=== PATIENT | male | born 1980 | race Caucasian/White ===

== ENCOUNTER 2017-08-09 16:45 | Emergency (ER) | payer SELFPAY ==
--- NOTE | 2017-08-09 17:16 | EDPHY ---
H & P Time Seen by Provider: 08/09/17 17:04 HPI/ROS: CHIEF COMPLAINT: Ran out of Xarelto HISTORY OF PRESENT ILLNESS: A 36-year-old man presents with running out of his anticoagulation. He was diagnosed in May 28 of this year in [place] with bilateral pulmonary emboli, I reviewed personally the radiology report which he has with him. He ran out of his Xarelto 5 days ago, is in [place] now, does not know how long he is going to stay. Over the last for 5 days he started getting hot flashes and having some intermittent left-sided chest pain. No leg swelling. No syncope. Not short of breath. REVIEW OF SYSTEMS: Eye: no change in vision ENT: no sore throat Cardiac: No palpitations. Pulmonary: no cough or SOB Abdomen: no vomiting, diarrhea, abdominal pain Musculoskeletal: No leg swelling. Skin: no rash Neuro: no headache Constitutional: no fever : no urinary symptoms A comprehensive 10 point review of systems is otherwise negative aside from elements mentioned in the history of present illness. PAST MEDICAL HISTORY: Pulmonary embolism as documented above. He told me he got genetic testing in that was all negative. Family history positive for grandmother with venous thromboembolism. Social history: Just moved here from [place], no local PCP General Appearance: Alert and conversant, cooperative. Eyes: No scleral icterus. ENT, Mouth: Normal mucous membranes. Respiratory: Normal respiratory effort, breath sounds equal, lungs are clear to auscultation. Speaks in full sentences. Cardiovascular: Regular rate and rhythm. No murmur. Gastrointestinal: Abdomen is soft and non tender. Neurological: Alert, face symmetric, normal motor and sensory in extremities. Skin: Warm and dry, no rashes. Musculoskeletal: No peripheral edema. No calf tenderness. Psychiatric: Not agitated. Emergency Department course/MDM: EKG is not ischemic. Creatinine is normal. Patient does not have clinical evidence of acute new pulmonary embolism and is appropriate for outpatient management on anticoagulation. He has a coupon for 1 month of Eliquis, says he just needs a prescription for me. He was seen by case management to assist in follow-up during the next 30 days here at [facility] in [place]. He is warned that he needs to follow up with primary care within the week to arrange for long-term anticoagulation. He has normal vital signs and I think it is unlikely that he requires inpatient admission today for emergent monitoring or IV anticoagulation or repeat imaging. Smoking Status: Never smoked Constitutional: Initial Vital Signs Temperature (C) 36.5 C 08/09/17 16:53 Heart Rate 61 08/09/17 16:53 Respiratory Rate 18 08/09/17 16:53 Blood Pressure 139/75 H 08/09/17 16:53 O2 Sat (%) 97 08/09/17 16:53 O2 Delivery Mode Room Air Allergies/Adverse Reactions: No Known Allergies Allergy (Unverified 08/09/17 16:53) Home Medications: Medication Instructions Recorded Apixaban [Eliquis 30-day Starter 1 kit PO AD #1 kit 08/09/17 Pack] Xarelto 08/09/17 Medical Decision Making - Diagnostics EKG Interpretation: 12-lead EKG interpreted by me; official reading is in trace master. My interpretation is sinus rhythm rate 58 with early repolarization. Differential Diagnosis: Differential diagnosis considered for chest pain including but not limited to myocardial ischemia, aortic dissection, pericarditis, pulmonary embolus, chest wall pain, pleural inflammation and pulmonary infectious causes. - Data Points Laboratory Results: 08/09/17 17:25 POC Hgb 17.3 gm/dL gm/dL (13.7-17.5) POC Hct 51 % % (40-51) POC Sodium 143 mEq/L mEq/L (135-145) POC Potassium 3.8 mEq/L mEq/L (3.3-5.0) POC Chloride 104 mEq/L mEq/L (97-110) POC BUN 13 mg/dL mg/dL (7-23) POC Creatinine 0.9 mg/dL mg/dL (0.7-1.3) POC Glucose 105 mg/dL H mg/dL (70-100) Point of Care Test Results: Chemistry 08/09/17 17:25 POC Sodium 143 mEq/L mEq/L (135-145) POC Potassium 3.8 mEq/L mEq/L (3.3-5.0) POC Chloride 104 mEq/L mEq/L (97-110) POC BUN 13 mg/dL mg/dL (7-23) POC Creatinine 0.9 mg/dL mg/dL (0.7-1.3) POC Glucose 105 mg/dL H mg/dL (70-100) ISTAT H&H 08/09/17 17:25 POC Hgb 17.3 gm/dL gm/dL (13.7-17.5) POC Hct 51 % % (40-51) Departure - Departure Disposition: Home, Routine, Self-Care Clinical Impression: History of pulmonary embolism Condition: Good Instructions: Apixaban (By mouth) Additional Instructions: Please follow up with the [facility] tomorrow and schedule an appointment to start an application for [place] Medicaid and follow up care. The contact information for the clinic is: [facility] [phone] [place] [address] Referrals: [facility],. [Clinic] - As per Instructions Prescriptions: Apixaban [Eliquis 30-day Starter Pack] 1 kit PO AD #1 kit
--- NOTE | 2017-08-09 17:18 | CPEKG ---
Heart Rate: 58 RR Interval: 1034 P-R Interval: 180 QRSD Interval: 90 QT Interval: 400 QTC Interval: 393 P Easton: 74 QRS [place]: 75 T Wave [place]: 57 EKG Severity - NORMAL ECG - EKG Impression: SINUS RHYTHM EKG Impression: ST ELEV, PROBABLE NORMAL EARLY REPOL PATTERN Electronically Signed By: Gerardo Nascimento 09-Aug-2017 18:06:47
--- NOTE | 2017-08-09 18:06 | ASMTCMCOM ---
CM Note CM Note Notes: Met with patient to discuss follow up plans for establishing a PCP and [place] Medicaid. 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 He does not have a definitive plan as to whether he will stay in [place], or "move on". He was in [place] a couple of months ago and he received a 30 day supply of Xarelto at that time. Patient has been given a prescription and voucher for a 30 day supply of Eliquis. I have encouraged patient to contact the [facility] tomorrow and stressed the importance of following up/establishing a prescribing provider to follow him while he is on this medication and for further prescription needs. Date Signed: 08/09/2017 06:06 PM Electronically Signed By:Lisa Pappas RN
[2017-08-09 18:20] VITALS: BP 128/81
== END 2017-08-09 18:20 | disposition home or self-care (01) ==
DX: Z86.711 Personal history of pulmonary embolism (principal); Z79.01 Long term (current) use of anticoagulants
CPT/HCPCS: 82435-PO; 82565-PO; 82947-PO; 84132-PO; 84295-PO; 84520-PO; 85014-PO